=== PATIENT | male | born 1985 | race Caucasian/White ===

== ENCOUNTER 2017-02-21 16:20 | Emergency (ER) | payer MEDICAID ==
[2017-02-21 16:31] VITALS: BP 135/67
--- NOTE | 2017-02-21 17:13 | XRAY Preliminary Report ---
Exam: XR Finger(s) LT IMPRESSION: No acute fracture or subluxation. [facility] SITE ID: [id number]
[2017-02-21] MEDS ORDERED: IBUPROFEN 800 MG TABLET PO STA (17:15)
--- NOTE | 2017-02-21 17:16 | XRAY Report ---
EXAM: LEFT FIFTH DIGIT RADIOGRAPHY EXAM DATE: 02/21/2017 05:02 PM. CLINICAL HISTORY: Left 5th digit injury. COMPARISON: None. TECHNIQUE: 3 views. FINDINGS: Bones: Normal. No fracture or bone lesion. Joints: Normal. No subluxations. Soft Tissues: No soft tissue foreign body. IMPRESSION: No acute fracture or subluxation. [facility] Referring Provider Line: [phone] SITE ID: [id number]
--- NOTE | 2017-02-21 17:19 | ED Physician Documentation ---
PD HPI UPPER EXT INJURY - Stated complaint Stated Complaint: LEFT PINKY INJ - Chief complaint Chief Complaint: Ext Problem - History obtained from History obtained from: Patient - History of Present Illness Location: Left, Finger (little) Type of injury: Crush Where injury occurred: Work Timing - onset: How many days ago (3) Worsened by: Moving, Palpating - Additonal information Additional information: The patient is a 32-year-old male who crushed his left little finger between 2 polys on a tractor engine while at work 3 days ago. He presents now because of persistent pain and swelling in his little finger. He is right hand dominant. He denies any other injuries. Review of Systems Constitutional: denies: Fever Skin: denies: Laceration (s) Musculoskeletal: reports: Extremity pain (Left little finger) Neurologic: denies: Focal weakness, Numbness PD PAST MEDICAL HISTORY - Past Medical History Past Medical History: No Endocrine/Autoimmune: None - Past Surgical History Past Surgical History: Yes - Present Medications Home Medications: Ambulatory Orders Medication Instructions Recorded Confirmed Hydrocodone/Ibuprofen 1 each PO Q6HR PRN #15 tablet 02/21/17 [Hydrocodone-Ibuprofen 5-200 mg] - Allergies Allergies/Adverse Reactions: Allergies Allergy/AdvReac Type Severity Reaction Status Date / Time acetaminophen [From Tylenol] Allergy Unknown Verified 05/10/16 09:02 - Social History Does the pt smoke?: No Smoking Status: Never smoker PD ED PE NORMAL - Vitals Vital signs reviewed: Yes (normal) - General General: Alert and oriented X 3, Well developed/nourished - HEENT HEENT: Atraumatic - Respiratory Respiratory: No respiratory distress - Derm Derm: No rash - Extremities Extremities: Other (There is swelling of the left little finger, particularly at the distal and middle phalanges, with associated tenderness to palpation. There is no break in the integument. He has limited flexion at the DIP joint secondary to pain and swelling. He is able to flex the PIP joint, and can extend both the DIP and PIP joints. Distal neurovascular is intact.) - Neuro Neuro: Alert and oriented X 3, No motor deficit, No sensory deficit Results - Vitals Vitals: Oxygen O2 Source Room air - Rads (name of study) Left little finger Radiology: Prelim report reviewed, EMP read contemporaneously, See rad report ( No acute fracture or subluxation.) PD MEDICAL DECISION MAKING - ED course Complexity details: reviewed results, re-evaluated patient, considered differential, d/w patient ED course: The patient's presentation is significant for crush injury to left little finger , with associated swelling. There is no fracture or dislocation seen on x-ray examination. Treatment in the emergency department included administration of ibuprofen 800 mg orally. A fingertip protector was applied. He is being discharged with prescription for hydrocodone/APAP. I discussed with him the expected course of injury, symptomatic treatment, as well as potentially worrisome signs or symptoms that should prompt reevaluation. Departure - Departure Disposition: Home, Self Care Clinical Impression: Crush injury to finger Qualifiers: Encounter type: initial encounter Qualified Code(s): S67.10XA - Crushing injury of unspecified finger(s), initial encounter Condition: Stable Instructions: ED Crush Injury Finger No Fx [place] [facility] [place]] [facility] [Provider Group] [facility] [Provider Group] Prescriptions: Hydrocodone/Ibuprofen [Hydrocodone-Ibuprofen 5-200 mg] 1 each PO Q6HR PRN #15 tablet PRN Reason: Pain Comments: 1. Keep your left hand elevated as much the time as possible. 2. Continue using ibuprofen, up to 800 mg 3 times daily for its anti- inflammatory effect. 3. You can use hydrocodone as prescribed if needed for more severe pain. 4. Let pain be your guide to activity level. 5. Follow-up with primary physician within 2 weeks. Call to schedule appointment. 6. Return to the emergency department if you develop markedly increasing pain despite the pain medication, or otherwise worsening symptoms. Discharge Date/Time: 02/21/17 17:35
[2017-02-21] MEDS ORDERED: IBUPROFEN 800 MG TABLET PO ONE (17:33)
== END 2017-02-21 17:35 | disposition home or self-care (01) ==
LOC: ED 16:20
DX: S67.197A Crushing injury of left little finger, initial encounter (principal); W30.89XA Contact with other specified agricultural machinery, initial encounter; Y99.0 Civilian activity done for income or pay
CPT/HCPCS: 73140; 99283; A9270